=== PATIENT | female | born 1965 | race African-American/Black ===

== ENCOUNTER 2020-06-08 12:13 | Observation (INO) ==
[2020-06-08] MEDS ORDERED: 0.9 % Sodium Chloride 1,000 ML IVC ONE (12:35)
[2020-06-08 13:03] LABS: Basophils % 0.3 %; Eosinophils # 0.1 K/mcL (0.0-0.6); Eosinophils % 1.5 %; Hemoglobin 13.1 g/dL (11.5-15.4); Immature Granulocytes % 0.3 % (0-4); Lymphocytes % 21.5 %; Mean Corpuscular HGB Conc 31.2 g/dL (31.6-35.5); Mean Corpuscular Hemoglobin 26.3 pg (28.0-33.3); Mean Corpuscular Volume 84.3 fL (83.0-100.0); Mean Platelet Volume 9.9 fL (9.4-12.4); Monocytes # 0.5 K/mcL (0.0-1.3); Monocytes % 5.7 %; Neutrophils # 6.5 K/mcL (1.6-8.9); Platelet Count 268 K/mcL (140-400); Red Blood Count 4.98 M/mcL (3.82-4.97); Segmented Neutrophils % 70.7 %; White Blood Count 9.1 K/mcL (4.3-11.1)
[2020-06-08 13:20] LABS: Albumin 4.7 g/dL (3.5-5.7); Albumin/Globulin Ratio 1.3 (1.1-2.2); Bilirubin,Direct 0.2 mg/dL (0.0-0.2); Bilirubin,Indirect 0.5 mg/dL (0.0-1.0); Bilirubin,Total 0.7 mg/dL (0.3-1.0); Calcium 9.6 mg/dL (8.6-10.3); Globulin 3.6 g/dL (2.4-3.5); Potassium 3.7 mEq/L (3.5-5.1); Total Protein 8.3 g/dL (6.4-8.9)
[2020-06-08 13:31] LABS: Bacteria,Urine Few per hpf (None-Few); Bilirubin,Urine Negative (Negative); Blood,Urine Trace (Negative); Clarity,Urine Clear (Clear); Color,Urine Yellow (Yellow); Glucose,Urine (UA) Normal (Normal); Ketones,Urine Negative (Negative); Leukocyte Esterase,Urine Negative (Negative); Mucus,Urine Few per lpf (None-Few); Nitrite,Urine Negative (Negative); Protein,Urine 30 mg/dL (Neg-Trace); Specific Gravity,Urine > 1.030 (1.010-1.025); Squamous Epithelial Cell,Urine Few per hpf (None-Few); Urobilinogen,Urine Normal (Normal)
[2020-06-08] MEDS ORDERED: Naloxone 0.4 MG/ML INJ IVP PRN (15:36)
[2020-06-08] MEDS ORDERED: Ondansetron 4 MG/2 ML VIAL IVP PRN (15:36)
[2020-06-08] MEDS ORDERED: Acetaminophen 325 MG TABLET PO PRN (15:36)
[2020-06-08] MEDS ORDERED: 0.9 % Sodium Chloride 1,000 ML IVC SCH (15:45)
[2020-06-08 18:25] LABS: Influenza A PCR Negative (Negative); Influenza B PCR Negative (Negative); Resp. Syncytial Virus PCR Negative (Negative)
[2020-06-08 18:26] LABS: SARS-CoV-2 by PCR (In House) Negative (Negative)
[2020-06-09 07:49] LABS: Hemoglobin 11.7 g/dL (11.5-15.4); Mean Corpuscular HGB Conc 30.8 g/dL (31.6-35.5); Mean Corpuscular Hemoglobin 26.6 pg (28.0-33.3); Mean Corpuscular Volume 86.4 fL (83.0-100.0); Mean Platelet Volume 10.2 fL (9.4-12.4); Platelet Count 230 K/mcL (140-400); Red Cell Distribution Width 12.8 % (11.5-14.5); White Blood Count 7.5 K/mcL (4.3-11.1)
[2020-06-09] MEDS ORDERED: Isovue-300 50ML VIAL ONE (07:50)
[2020-06-09 08:08] LABS: Calcium 8.7 mg/dL (8.6-10.3)
[2020-06-09 08:09] LABS: Chol/HDL Ratio 6.7 (0-4.9)
[2020-06-09 08:16] LABS: Estimated Average Glucose 137 mg/dl; Hemoglobin A1C 6.4 %
[2020-06-09 08:18] LABS: % Iron Saturation 23 % (15-50); Iron 69 mcg/dL (50-170); Transferrin 212 mg/dL (203-362)
[2020-06-09 08:29] LABS: Ferritin 197 ng/mL (10-120)
[2020-06-09 08:34] LABS: Folate 9.3 ng/mL (3.0-16.0)
[2020-06-09] MEDS ORDERED: levoFLOXacin 500 MG/100 ML 500 MG/100 ML BAG IVPB ONE (09:00)
[2020-06-09] MEDS ORDERED: Acetaminophen IV 1,000 MG/100 ML BAG IVPB ONE ×2 (10:11→10:27)
[2020-06-09] MEDS ORDERED: Famotidine 20 MG/2 ML VIAL ONE (10:11)
[2020-06-09] MEDS ORDERED: Dexamethasone 4 MG/ML VIAL ONE (10:22)
[2020-06-09] MEDS ORDERED: Lidocaine -MPF 2% 2 ML VIAL ONE (10:22)
[2020-06-09] MEDS ORDERED: *HR* FentaNYL (PF) 100 MCG/2 ML VIAL ONE (10:22)
[2020-06-09] MEDS ORDERED: Ondansetron 4 MG/2 ML VIAL ONE (10:22)
[2020-06-09] MEDS ORDERED: *HR* Midazolam HCl 2 MG/2 ML VIAL ONE (10:23)
[2020-06-09] MEDS ORDERED: *HR* Propofol 200 MG/20 ML VIAL IVP ONE (10:23)
[2020-06-09] MEDS ORDERED: Famotidine 20 MG/2 ML VIAL IVP ONE (10:28)
[2020-06-09] MEDS ORDERED: EPHEDrine 50 MG/ML VIAL ONE (11:42)
[2020-06-09] MEDS ORDERED: Ondansetron 4 MG/2 ML VIAL IVP PRN ×2 (11:49→13:04)
[2020-06-09] MEDS ORDERED: *HR* OxyCODONE Immed Rel 5 MG TABLET PO PRN (11:49)
[2020-06-09] MEDS ORDERED: *HR* Belladonna Alkaloids/Opium 60 MG RECTAL SUPPOSITORY RC PRN (13:04)
[2020-06-09] MEDS ORDERED: *HR* OxyCODONE/APAP 5/325 TABLET PO PRN (13:04)
[2020-06-09] MEDS ORDERED: Naloxone 0.4 MG/ML INJ IVP PRN (13:04)
[2020-06-09] MEDS ORDERED: Acetaminophen 325 MG TABLET PO PRN (13:04)
[2020-06-09] MEDS ORDERED: 0.9 % Sodium Chloride 1,000 ML IVC SCH (13:45)
[2020-06-09 15:14] VITALS: BP 127/85
[2020-06-12 14:42] LABS: Calculi Mass 103 mg
== END 2020-06-09 17:40 | disposition home or self-care (01) ==
LOC: 3BNU 12:13 → EMEROOARM 12:13 → SUATTDRO 15:40 → 3BNU 16:44
PROVIDERS: ADMIT Family Medicine; ATTEND Family Medicine